=== PATIENT | female | born 1935 | race Caucasian/White ===

== ENCOUNTER 2016-04-13 10:35 | Inpatient (IN) | payer MEDICARE, BC ==
[~2016-04-13] VITALS: Ht 157.5 cm; Wt 51.6 kg
--- NOTE | 2016-04-16 09:33 | CO ---
ADMIT: 04/13/2016 RM/LOC: 408 [facility] MR#: [id number] [address] [address] ONEYDA HINES [address] [id number] Consultation SEX: F AGE: 80 : 1935 DATE OF CONSULTATION: 04/15/2016 ATTENDING PHYSICIAN: Reed Aceves CONSULTING PHYSICIAN: Yonathan Malloy MD ADDENDUM: For details of the full dictation, please see Prakash Heredia's note. I have seen Oneyda in consultation, reviewed Prakash's note and I am in agreement with his note in its entirety. I have recommended and ordered a CT scan of the abdomen and pelvis to re-evaluate for obstructive findings. She does have reducible ventral hernia on exam today and we will reassess that whether that is a potential source of an obstruction area as well. We will have additional discussion with Oneyda after the CAT scan regarding management. Yonathan Malloy MD/ sanya JOB #: [id number] CC: Reed Aceves, Attending Physician Reed Aceves, Family Physician
--- NOTE | 2016-04-21 17:46 | ER ---
ADMIT: 04/13/2016 RM/LOC: 408 [facility] MR#: [id number] [id number] [place], [place] [address] SHARMIN HINES [address] [address] Emergency Room Report SEX: F AGE: 80 : 1935 DATE: 04/13/2016 ADDENDUM: This patient comes to the ER because she is short of breath. She has a history of having emphysema and states that she did have some fevers and chills last week, numbness and weak today. The shortness of breath has gotten increasingly worse. She does wear oxygen at night. On physical exam, her O2 saturation was 85% on room air. She did have decreased air movement with auscultation of her lungs. She was given initially in the ambulance Solu- Medrol and she received the DuoNeb here and in the ambulance as well. Her lactic acid was 3.6. White count was normal. I did consult with Dr. Samaniego concerning treatment of this patient. Dr. Manzo came in to see the patient and will admit her for: 1. Pneumonia. 2. Sepsis. Please see my T-sheet and his dictation for further treatment. MARY Mendiola / Prakash Samaniego MD / modl JOB #: [id number] CC: Reed Aceves MD, Attending Physician Reed Aceves MD, Family Physician
--- NOTE | 2016-04-22 08:55 | CO ---
ADMIT: 04/13/2016 RM/LOC: 408 [facility] MR#: [id number] [address] [facility] [address] [place], [place] [address] ONEYDA HINES [address] [address] Consultation SEX: F AGE: 80 : 1935 DATE OF CONSULTATION: 04/15/2016 ATTENDING PHYSICIAN: Reed Aceves CONSULTING PHYSICIAN: Yonathan Malloy MD REASON FOR CONSULTATION: Partial small bowel obstruction. HISTORY OF PRESENT ILLNESS: Oneyda is a very pleasant 80-year-old female, who has been admitted to the hospital for management of left lower lobe pneumonia. While in the hospital stay, she developed crampy abdominal pain yesterday, where she also became nauseous and had multiple times emesis. She admits to having several episodes of these throughout her life for the 1st one being approximately 5 years ago. Her most recent episode is now and she believes she had 1 approximately 3 weeks ago. She was actually going to see Dr. Castaneda for some of her bowel issues but that appointment has now cancelled since she has been admitted to the hospital. She was told at some point that they found a "kink" in her bowels that she wanted further workup on; however, in reviewing her radiology reports, I could not find such evidence. Currently, the patient states her abdominal pain is diffuse throughout her abdomen and crampy in nature. Her last bowel movement was on Wednesday and she passed flatus yesterday. She denies any hematemesis, dark or bloody stools. PAST MEDICAL HISTORY: Significant for bronchitis. PAST SURGICAL HISTORY: Hernia repair with mesh placement. There was subsequent mesh removal due to infection approximately a couple of years ago according to documentation. ALLERGIES: TO PENICILLIN, SULFA, CIPRO, AND CONTRAST DYE. MEDICATIONS: Well documented in chart. FAMILY HISTORY: Noncontributory. SOCIAL HISTORY: The patient is a former alcohol and tobacco user. Denies illicit drug use. REVIEW OF SYSTEMS: Head: The patient states occasional headaches when her blood pressure is high. She denies any dizziness or lightheadedness or near- syncopal episodes. The rest of comprehensive 10-point review of systems was performed and all other systems are negative. PHYSICAL EXAMINATION: GENERAL: The patient is in no acute distress. She is alert and oriented. HEENT: Head is normocephalic and atraumatic. EOMS are intact. Conjunctivae free of icterus, erythema, or pallor. Pinnae, free of deformities. Nose, midline. No tracheal deviation. NECK: Supple. ADMIT: 04/13/2016 RM/LOC: 408 [facility] MR#: [id number] [address] [address] ONEYDA HINES [address] [place] [address] Consultation SEX: F AGE: 80 : 1935 SKIN: Negative for jaundice, clubbing, edema, pallor, or cyanosis. LUNGS: Normal respiratory effort. HEART: Distal pulses intact. Regular rate and rhythm. ABDOMEN: Soft, nondistended, and nontender. NEURO: Grossly intact. DIAGNOSTIC IMAGING: Abdominal flat plate today revealed nonobstructive bowel gas pattern. There was also stool throughout the large bowel. ASSESSMENT: Partial small-bowel obstruction. PLAN: As of right now, the patient is comfortable and she has received clears. I will go ahead and continue these advanced to fulls later on and place NG should her abdominal pain recur or if emesis were to recur as well. In the event that she were to deteriorate, I would also get a CAT scan of her abdomen, but at this time, I think we can treat her conservatively and follow up with an appointment with Dr. Castaneda later down the road. She is in agreement of this plan. I had all her questions answered and would like to proceed. Thank you for the consultation of this patient. MARY Mir / Yonathan Malloy MD / sanya JOB #: [id number] CC: Reed Aceves, Attending Physician Reed Aceves, Family Physician
[2016-04-25] MEDS ORDERED: DELTASONE DPS5 MG PO (14:27)
[2016-04-25] MEDS ORDERED: OYSTER SHELL C500 MG PO (14:27)
[2016-04-25] MEDS ORDERED: MIRALAX PACKET17 GM PO (14:27)
[2016-04-25] MEDS ORDERED: NORVASC5 MG PO (14:27)
[2016-04-25] MEDS ORDERED: ALDACTONE DPS25 MG PO (14:27)
[2016-04-25] MEDS ORDERED: VITAMIN D1000 UNI1 PO (14:28)
[2016-04-25] MEDS ORDERED: ZOLOFT DPS25 MG PO (14:28)
[2016-04-25] MEDS ORDERED: MONTELUKAST SOD10 MG PO (14:28)
[2016-04-25] MEDS ORDERED: REGLAN DPS5 MG PO (14:28)
[2016-04-25] MEDS ORDERED: PEPCID DPS20 MG PO (14:28)
[2016-04-25] MEDS ORDERED: ATIVAN-DPS0.5 MG PO (14:29)
[2016-04-25] MEDS ORDERED: DUONEB DPS3 ML IH (14:29)
[2016-04-25] MEDS ORDERED: DULCOLAX-DPS10 MG PR (14:29)
[2016-04-25] MEDS ORDERED: CATAPRES-DPS0.1 MG PO (14:30)
[2016-04-25] MEDS ORDERED: SURFAK DPS240 MG PO (14:30)
[2016-04-25] MEDS ORDERED: MAALOX DPS30 ML PO (14:30)
[2016-04-25] MEDS ORDERED: TYLENOL DPS325 MG PO (14:31)
[2016-05-19] MEDS ORDERED: ALDACTONE DPS25 MG PO (18:24)
[2016-05-19] MEDS ORDERED: MIRALAX PACKET17 GM PO (18:25)
[2016-05-19] MEDS ORDERED: OYSTER SHELL C500 MG PO (18:25)
[2016-05-19] MEDS ORDERED: CARDIZEM CD DP120 MG PO (18:25)
[2016-05-19] MEDS ORDERED: DELTASONE DPS10 MG PO (18:25)
[2016-05-19] MEDS ORDERED: DIFLUCAN100 MG PO (18:25)
[2016-05-19] MEDS ORDERED: PEPCID DPS20 MG PO (18:26)
[2016-05-19] MEDS ORDERED: MONTELUKAST SOD10 MG PO (18:26)
[2016-05-19] MEDS ORDERED: VITAMIN D31000 UNIT PO (18:26)
[2016-05-19] MEDS ORDERED: ZOLOFT DPS50 MG PO (18:26)
[2016-05-19] MEDS ORDERED: DULCOLAX-DPS10 MG PR (18:27)
[2016-05-19] MEDS ORDERED: DUONEB DPS3 ML IH (18:27)
[2016-05-19] MEDS ORDERED: NOVOLIN R,100 UNITS/ SQ (18:28)
[2016-05-19] MEDS ORDERED: MAALOX DPS30 ML PO (18:29)
[2016-05-19] MEDS ORDERED: SURFAK DPS240 MG PO (18:29)
[2016-05-19] MEDS ORDERED: CATAPRES-DPS0.1 MG PO (18:29)
[2016-05-19] MEDS ORDERED: GLUTOSE 1537.5 GM PO (18:29)
[2016-05-19] MEDS ORDERED: ATIVAN-DPS0.5 MG PO (18:29)
[2016-05-19] MEDS ORDERED: TYLENOL DPS325 MG PO (18:30)
[2016-05-19] MEDS ORDERED: PROVENTIL HFA6.7 GM IH (18:30)
--- NOTE | 2016-07-07 13:08 | DS ---
ADMIT: 04/13/2016 RM/LOC: 408 [facility] MR#: [id number] [address] [facility] [address] [place], [place] [address] ONEYDA HINES [address] [facility] [address] [place] [id number] Discharge Summary SEX: F AGE: 80 : 1935 CORRECTED: 06/02/2016 1232 BJ ADMISSION DATE: 04/13/2016 DISCHARGE DATE: 04/22/2016 DISMISSAL DIAGNOSES: 1. Nausea and vomiting, resolved. 2. Obstipation. CLINICAL HISTORY: Oneyda Hines came in with pneumonia, was in the midst of evaluation for partial small bowel obstruction, and began to have nausea and vomiting. This required NG tube short-term. Ultimately, her seeming partial small bowel obstruction resolved. Her bowels began to move. Her pneumonia improved. Her COPD improved as well. She was able to resume diet. TPN was used to provide nutrition and ultimately she was dismissed somewhat unplanned as her was in the last vestiges of dying from a known terminal illness, and she requested to be at his bedside. Blood cultures were repeatedly negative. Blood sugar testing showed sugars in the 200s, returning to the 100, and chemistries appropriately reflected her nutritional needs and her TPN. Pansinusitis was demonstrated on sinus films, and various chest x-ray interpretations documented improvement. A CT of the abdomen did not show a definite small bowel obstruction, but mesenteric edema. She was again dismissed somewhat precipitously for close followup. Reed Aceves MD/ sanya JOB #: [id number] CC: Reed Aceves MD, Attending Physician Reed Aceves MD, Family Physician CORRECTED: 06/02/2016 1232 BJ
== END 2016-04-22 15:50 | disposition home or self-care (01) | DRG 190 ==
LOC: ER 10:35 → 4PCU 12:20
PROVIDERS: ADMIT Internal Medicine
DX: J44.0 Chronic obstructive pulmonary disease with (acute) lower respiratory infection (principal); J12.9 Viral pneumonia, unspecified; K56.60 Unspecified intestinal obstruction; E46 Unspecified protein-calorie malnutrition; J44.1 Chronic obstructive pulmonary disease with (acute) exacerbation; I10 Essential (primary) hypertension; K59.00 Constipation, unspecified; K57.90 Diverticulosis of intestine, part unspecified, without perforation or abscess without bleeding; F41.9 Anxiety disorder, unspecified; K43.9 Ventral hernia without obstruction or gangrene; Z87.891 Personal history of nicotine dependence

== ENCOUNTER 2016-04-22 19:18 | Inpatient (IN) | payer MEDICARE, BC ==
[~2016-04-22] VITALS: Ht 157.5 cm; Wt 51.4 kg
--- NOTE | ~2016-04-22 | FD ---
ADMIT: 04/22/2016 RM/LOC: 408 [facility] MR#: [id number] 2620 [facility] [address] [place] [address] SHARMIN HINES [facility] [address] Final Diagnosis SEX: F AGE: 80 : 1935 ADMISSION DATE: 04/22/2016 DISCHARGE DATE: 04/24/2016 FINAL DIAGNOSIS: Pneumonia. Reed Aceves MD/ ajf JOB #: [id number] CC: Reed Aceves MD, Attending Physician Reed Aceves MD, Family Physician
[2016-04-25] MEDS ORDERED: DELTASONE DPS5 MG PO (14:27)
[2016-04-25] MEDS ORDERED: OYSTER SHELL C500 MG PO (14:27)
[2016-04-25] MEDS ORDERED: ALDACTONE DPS25 MG PO (14:27)
[2016-04-25] MEDS ORDERED: MIRALAX PACKET17 GM PO (14:27)
[2016-04-25] MEDS ORDERED: NORVASC5 MG PO (14:27)
[2016-04-25] MEDS ORDERED: MONTELUKAST SOD10 MG PO (14:28)
[2016-04-25] MEDS ORDERED: ZOLOFT DPS25 MG PO (14:28)
[2016-04-25] MEDS ORDERED: VITAMIN D1000 UNI1 PO (14:28)
[2016-04-25] MEDS ORDERED: PEPCID DPS20 MG PO (14:28)
[2016-04-25] MEDS ORDERED: REGLAN DPS5 MG PO (14:28)
[2016-04-25] MEDS ORDERED: ATIVAN-DPS0.5 MG PO (14:29)
[2016-04-25] MEDS ORDERED: DUONEB DPS3 ML IH (14:29)
[2016-04-25] MEDS ORDERED: DULCOLAX-DPS10 MG PR (14:29)
[2016-04-25] MEDS ORDERED: SURFAK DPS240 MG PO (14:30)
[2016-04-25] MEDS ORDERED: MAALOX DPS30 ML PO (14:30)
[2016-04-25] MEDS ORDERED: CATAPRES-DPS0.1 MG PO (14:30)
[2016-04-25] MEDS ORDERED: TYLENOL DPS325 MG PO (14:31)
[2016-05-19] MEDS ORDERED: ALDACTONE DPS25 MG PO (18:24)
[2016-05-19] MEDS ORDERED: DELTASONE DPS10 MG PO (18:25)
[2016-05-19] MEDS ORDERED: DIFLUCAN100 MG PO (18:25)
[2016-05-19] MEDS ORDERED: MIRALAX PACKET17 GM PO (18:25)
[2016-05-19] MEDS ORDERED: CARDIZEM CD DP120 MG PO (18:25)
[2016-05-19] MEDS ORDERED: OYSTER SHELL C500 MG PO (18:25)
[2016-05-19] MEDS ORDERED: MONTELUKAST SOD10 MG PO (18:26)
[2016-05-19] MEDS ORDERED: ZOLOFT DPS50 MG PO (18:26)
[2016-05-19] MEDS ORDERED: PEPCID DPS20 MG PO (18:26)
[2016-05-19] MEDS ORDERED: VITAMIN D31000 UNIT PO (18:26)
[2016-05-19] MEDS ORDERED: DUONEB DPS3 ML IH (18:27)
[2016-05-19] MEDS ORDERED: DULCOLAX-DPS10 MG PR (18:27)
[2016-05-19] MEDS ORDERED: NOVOLIN R,100 UNITS/ SQ (18:28)
[2016-05-19] MEDS ORDERED: ATIVAN-DPS0.5 MG PO (18:29)
[2016-05-19] MEDS ORDERED: GLUTOSE 1537.5 GM PO (18:29)
[2016-05-19] MEDS ORDERED: CATAPRES-DPS0.1 MG PO (18:29)
[2016-05-19] MEDS ORDERED: MAALOX DPS30 ML PO (18:29)
[2016-05-19] MEDS ORDERED: SURFAK DPS240 MG PO (18:29)
[2016-05-19] MEDS ORDERED: TYLENOL DPS325 MG PO (18:30)
[2016-05-19] MEDS ORDERED: PROVENTIL HFA6.7 GM IH (18:30)
--- NOTE | 2016-05-25 11:46 | HP ---
ADMIT: 04/22/2016 RM/LOC: 408 [facility] MR#: [id number] [address] [place], [place] [address] ONEYDA HINES A [address] [place] [address] History and Physical SEX: F AGE: 80 : 1935 DATE OF SERVICE: CHIEF COMPLAINT: Pneumonia. CLINICAL HISTORY: Oneyda had an upper respiratory infection at home over the last one week but in spite of increasing respiratory treatments, antibiotics, Boost,and steroid therapy; she continued to cough, develop fever and weakness and shortness of breath; she came into the emergency room and had a left pneumonia, probably viral. She had been prepped for the possibility of surgery having an internal hernia/adhesion with intermittent abdominal pain, nausea and vomiting. She had seen Dr. Castaneda surgically and had been prepared for surgery and cancelled due to her respiratory illness. PAST MEDICAL HISTORY: Prior history of asthma, hypertension, prior fractured hip, left inguinal hernia repair and secondary mesh infection with removal and recent abdominal pain. ALLERGIES: MOST OF THESE ARE INTOLERANCES BUT ARE MULTIPLE. REVIEW OF SYSTEMS: She has not had any vomiting or any signs or symptoms of aspiration. She denies any chest pain. She has had bladder infections in the past but has no symptoms currently. PHYSICAL EXAMINATION: GENERAL: Examination showed white female in no acute distress but is obviously weak and tired. HEAD AND NECK: Otherwise without findings. LUNG: Showed focal rales at left base, significant and increased. HEART: Regular with pulse rate at 90. ABDOMEN: Benign with no mass or tenderness. No evidence of obstruction. EXTREMITIES: Otherwise unremarkable except for trace of puffiness of the right foot, post hip fracture. This is chronic and unchanged. NEUROLOGIC: She is awake and alert. Moves all 4 extremities but has no focal abnormalities. ADMIT: 04/22/2016 RM/LOC: 408 [facility] MR#: [id number] 2620 [facility] [address] [place], [place] [address] ONEYDA HINES [address] [place] [address] History and Physical SEX: F AGE: 80 : 1935 IMPRESSION: 1. Left lower lobe pneumonia, probably viral. 2. Recent partial small bowel obstruction with adhesion/internal hernia. 3. History of asthma/emphysema. 4. Recent fractured hip. 5. Multiple medication intolerances. TREATMENT: We will start her on antibiotics and pulmonary hygiene, watch her abdominal findings closely, and probably have Dr. Castaneda notified who has seen her in the past. Reed Aceves MD/ sanya JOB #: [id number] CC: Reed Aceves, Attending Physician Reed Aceves, Family Physician Demetrius Castaneda MD
== END 2016-04-24 14:49 | DRG 190 ==
LOC: 4PCU 19:18
PROVIDERS: ADMIT Internal Medicine
DX: J44.0 Chronic obstructive pulmonary disease with (acute) lower respiratory infection (principal); J12.9 Viral pneumonia, unspecified; J45.909 Unspecified asthma, uncomplicated; K46.9 Unspecified abdominal hernia without obstruction or gangrene; I10 Essential (primary) hypertension

== ENCOUNTER 2016-05-07 06:41 | Emergency (ER) | payer MEDICARE, BC ==
[~2016-05-07 06:41] MED LIST: ALDACTONE DPS25 MG PO; ATIVAN-DPS0.5 MG PO; CATAPRES-DPS0.1 MG PO; DELTASONE DPS5 MG PO; DULCOLAX-DPS10 MG PR; DUONEB DPS3 ML IH; MAALOX DPS30 ML PO; MIRALAX PACKET17 GM PO; MONTELUKAST SOD10 MG PO; NORVASC5 MG PO; OYSTER SHELL C500 MG PO; PEPCID DPS20 MG PO; REGLAN DPS5 MG PO; SURFAK DPS240 MG PO; TYLENOL DPS325 MG PO; VITAMIN D1000 UNI1 PO; ZOLOFT DPS25 MG PO
[2016-05-19] MEDS ORDERED: ALDACTONE DPS25 MG PO (18:24)
[2016-05-19] MEDS ORDERED: DELTASONE DPS10 MG PO (18:25)
[2016-05-19] MEDS ORDERED: CARDIZEM CD DP120 MG PO (18:25)
[2016-05-19] MEDS ORDERED: OYSTER SHELL C500 MG PO (18:25)
[2016-05-19] MEDS ORDERED: DIFLUCAN100 MG PO (18:25)
[2016-05-19] MEDS ORDERED: MIRALAX PACKET17 GM PO (18:25)
[2016-05-19] MEDS ORDERED: ZOLOFT DPS50 MG PO (18:26)
[2016-05-19] MEDS ORDERED: PEPCID DPS20 MG PO (18:26)
[2016-05-19] MEDS ORDERED: MONTELUKAST SOD10 MG PO (18:26)
[2016-05-19] MEDS ORDERED: VITAMIN D31000 UNIT PO (18:26)
[2016-05-19] MEDS ORDERED: DUONEB DPS3 ML IH (18:27)
[2016-05-19] MEDS ORDERED: DULCOLAX-DPS10 MG PR (18:27)
[2016-05-19] MEDS ORDERED: NOVOLIN R,100 UNITS/ SQ (18:28)
[2016-05-19] MEDS ORDERED: ATIVAN-DPS0.5 MG PO (18:29)
[2016-05-19] MEDS ORDERED: CATAPRES-DPS0.1 MG PO (18:29)
[2016-05-19] MEDS ORDERED: MAALOX DPS30 ML PO (18:29)
[2016-05-19] MEDS ORDERED: GLUTOSE 1537.5 GM PO (18:29)
[2016-05-19] MEDS ORDERED: SURFAK DPS240 MG PO (18:29)
[2016-05-19] MEDS ORDERED: TYLENOL DPS325 MG PO (18:30)
[2016-05-19] MEDS ORDERED: PROVENTIL HFA6.7 GM IH (18:30)
--- NOTE | 2016-06-06 21:14 | ER ---
ADMIT: 05/07/2016 RM/LOC: ER [facility] MR#: [id number] [address] [facility] [place], [place] [address] SHARMIN HINES [address] [address] Emergency Room Report SEX: F AGE: 80 : 1935 DATE: 05/07/2016 An 80-year-old, who resides at the [facility] [place], became short of breath in the night. She is normally on 2 L of oxygen. She started coughing and felt short of breath. I increased her oxygen to 3, transferred her to the Emergency Department here. See T-sheet for history and physical. Chest x-ray is clear. White count is normal, hemoglobin 11.9. Chemistries are 3.5 for potassium, glucose 156. An ABG on 2 L, which is her chronic O2 setting has a pH of 7.45, pCO2 of 35, PO2 of 80, and O2 saturations is 95%. The patient is being discharged and instructed to keep her appointment with Dr. Aceves. DIAGNOSIS: Being shortness of breath. Qamar Stoddard MD/ sanya JOB #: [id number] CC: Chicho Jeter MD, Attending Physician Reed Aceves MD, Family Physician
== END 2016-05-07 09:25 | disposition home or self-care (01) ==
LOC: ER 06:41
DX: R06.02 Shortness of breath (principal); I10 Essential (primary) hypertension; J45.909 Unspecified asthma, uncomplicated; Z88.0 Allergy status to penicillin; Z88.2 Allergy status to sulfonamides; Z88.1 Allergy status to other antibiotic agents; Z91.041 Radiographic dye allergy status; Z87.891 Personal history of nicotine dependence

== ENCOUNTER 2016-05-11 16:03 | Inpatient (IN) | payer MEDICARE, BC ==
[~2016-05-11] VITALS: Ht 157.5 cm; Wt 52.4 kg
--- NOTE | ~2016-05-11 | ECH ---
Transthoracic Echocardiography Report (TTE) Demographics Patient Name SHARMIN HINES Date of Study 05/12/2016 Patient Number [id number] Visit Number [id number] Date of 1935 Room Number 508 Accession Number [id number] Gender Female Age 80 year(s) Referring Ketan Emanuel MD Road Boss Lupe Arellano [facility] Physician Physician Pete Martinez MD Residency Program Coordinator Physician Giovany Supervising Ordering Physician Ketan Emanuel MD, MD/P Nurse Stress Produce Laborer Conclusions Contractility Score Summary Normal Left Ventricular contractility was noted. Summary Technically fair exam. The estimated left ventricular ejection fraction is >75% with hyperdynamic function. Diastolic assessment reveals Grade I diastolic dysfunction. There is mild aortic regurgitation by color Doppler. There is mild to moderate tricuspid regurgitation. There is mild pulmonary hypertension. The pulmonary pressure (RVSP) is 36 mmHg. Rhythm appears to be sinus tachycardia. Recommendation The patient will be given the results of this study by the physician who ordered the exam. Procedure Type of Study TTE procedure:Echo Complete SF. Procedure Date Date: 05/12/2016 Start: 02:40 PM Technical Quality: Fair Indications:Shortness of breath, edema and paroxysmal a-fib. Appropriate Use Criteria: 9 Height: 62 inches Weight: 109 pounds BSA: 1.48 m Rhythm: Sinus tachycardia HR: 104 bpm BP: 141/65 mmHg M-Mode/2D Measurements LV Diastolic Dimension: 2.69 cm LV Systolic Dimension: 2.01 cm LV Septum Diastolic: 0.8 cm LV PW Diastolic: 0.9 cm AO Root Dimension: 2.58 cm Cardiac Output: 4.42 l/min LA Dimension: 2.73 cm Cardiac Index: 2.99 l/min*m LA volume index: 13 ml/m LVOT: 1.52 cm RV Base: 3.2 cm LVOT VTI: 23.41 cm RV Mid: 1.9 cm LV Stroke volume: 42.46 ml LV Stroke volume index: 28.69 ml/m Doppler Measurements AV Peak Velocity: 1.5 m/s MV Peak E-Wave: 0.68 m/s AV Peak Gradient: 9 mmHg MV Peak A-Wave: 1.1 m/s AV Mean Gradient: 4.82 mmHg MV E/A Ratio: 0.62 LVOT Peak Velocity: 1.57 m/s AV Area (Continuity):1.44 cm AV P1/2t: 341.2 msec TR Velocity:2.79 m/s PV Peak Velocity: 1.17 m/s TR Gradient:31.06 mmHg PV Peak Gradient: 5.43 mmHg Estimated RAP:5 mmHg Estimated PASP: 36.06 mmHg Estimated RVSP: 36 mmHg RA Area: 9.33 cm Findings Left Ventricle The left ventricle is normal in size . Diastolic assessment reveals Grade I diastolic dysfunction. Right Ventricle Normal right ventricle structure and function. Left Atrium Normal left atrial size. Right Atrium Normal right atrial size. Mitral Valve Mild thickening of the mitral valve leaflets. Mild mitral annular calcification. Trivial mitral regurgitation by color Doppler. Aortic Valve The aortic valve was not well imaged. The aortic valve is mildly sclerotic. There is mild aortic regurgitation by color Doppler. Tricuspid Valve Normal tricuspid valve structure and function. Mild to moderate tricuspid regurgitation by color Doppler. There is mild pulmonary hypertension. The pulmonary pressure (RVSP) is 36 mmHg. Pulmonic Valve Normal pulmonic valve structure and function. Pericardial Effusion No evidence of pericardial effusion. Miscellaneous Visualized portions of the aortic root and ascending aorta appear normal in size. Pleural Effusion No evidence of pleural effusion. Contractility Score LV regional wall motion:(0-Non visualized 1-Normal 2-Hypokinesis 3-Akinesis 4-Dyskinesis 5-Aneurysm) Signature
--- NOTE | ~2016-05-11 | HP ---
ADMIT: 05/11/2016 RM/LOC: 527 [facility] MR#: [id number] [address] [place], [place] [address] ONEYDA HINES [address] [place] [address] History and Physical SEX: F AGE: 80 : 1935 DATE OF SERVICE: CHIEF COMPLAINT: 1. Left lower lobe pneumonia, possible viral. 2. Chronic obstructive pulmonary disease with exacerbation. 3. Partial small bowel obstruction. CLINICAL HISTORY: Oneyda was admitted to the hospital. She was in the midst of an evaluation for partial small bowel obstruction, which was seen on CT scan and had seen surgical consultation. She was planning to have surgery, but then developed a viral upper respiratory infection resulting in ultimate pneumonia and exacerbation of chronic obstructive pulmonary disease and she was admitted for such. PAST MEDICAL HISTORY: Includes: 1. A prior fractured hip. 2. Hypertension. 3. Chronic edema. 4. Hyperglycemia. 5. Hypertension. 6. COPD. 7. Partial small bowel obstruction. PAST SURGICAL HISTORY: She had a left inguinal hernia repair with mesh, and mesh removal due to chronic infection. REVIEW OF SYSTEMS: Otherwise was unremarkable without choking or swallowing issues. She had not had any other specific symptoms including no hemoptysis, chest pain, etc. PHYSICAL EXAMINATION: GENERAL: Examination showed a white female. VITAL SIGNS: Blood pressure 162/90. HEAD AND NECK: The head and neck shows some sinus congestion and pressure. LUNGS: Show rales at the left lower lobe. There was expiratory wheezes, poor air entry. O2 saturations on room air were borderline. ABDOMEN: Benign without definite signs of obstruction at this time. EXTREMITIES: The extremities showed trace of edema right, 1 to 2+ left (prior fracture). ADMITTING IMPRESSION: ADMIT: 05/11/2016 RM/LOC: 527 [facility] MR#: [id number] [address] [address] ONEYDA HINES [place] [address] [place] [address] History and Physical SEX: F AGE: 80 : 1935 1. Pneumonia, left lower lobe. 2. Chronic obstructive pulmonary disease with exacerbation. 3. Recent partial small bowel obstruction. 4. Hypertension. 5. Hyperglycemia. 6. Status post hip fracture. 7. Residual edema, left. 8. History of inguinal hernia repair with secondary mesh infection, resolved. TREATMENT PLAN: We will cover with IV antibiotics, steroids, blood pressure control, etc. Reed Aceves MD/ modl JOB #: [id number] CC: Reed Aceves MD, Attending Physician Reed Aceves MD, Family Physician
--- NOTE | 2016-05-15 08:44 | CO ---
ADMIT: 05/11/2016 RM/LOC: 527 [facility] MR#: [id number] [address] [place], [place] [address] DONNY SHARMIN A [address] [place] [address] Consultation SEX: F AGE: 80 : 1935 DATE OF CONSULTATION: 05/14/2016 ATTENDING PHYSICIAN: Reed Aceves CONSULTING PHYSICIAN: Gm Llanos MD REASON: Pulmonary infiltrate. HISTORY OF PRESENT ILLNESS: The patient is a pleasant 80-year-old female, admitted with a COPD exacerbation. During the evaluation, chest x-ray and CT scan has been performed. She has upper lobe infiltrates, which are more prominent than they were on prior scan. She has a cough, no hemoptysis, some low-grade fevers, no night sweats, some chills. She has significant history of anxiety, oxygen-dependent COPD, and former smoking history. Antibiotics consisting of Rocephin and Levaquin have been initiated. Prior TB testing x2. Skin testing has been negative. QuantiFERON gold testing has been ordered. She has been moved to respiratory isolation. AFBs will be obtained. PAST MEDICAL HISTORY: Reviewed. COPD, anxiety, and pulmonary infiltrates. PAST SURGICAL HISTORY: Reviewed. History of inguinal hernia and prior fractured hip. MEDICATIONS: At home: 1. Ativan. 2. Singular. 3. Norvasc. 4. Oxygen. 5. Proventil. 6. Prednisone. 7. Ceftin. SOCIAL HISTORY: At assisted Living post hip fracture. REVIEW OF SYSTEMS: Except the HPI is negative and reviewed. PHYSICAL EXAMINATION: VITAL SIGNS: Reviewed and within normal limits. HEENT: Within normal limits. NECK: No JVD or bruits. HEART: Regular rate. LUNGS: Rhonchi. ABDOMEN: Soft. EXTREMITIES: No edema, cyanosis, or clubbing. GENITORECTAL: Deferred. LABORATORY DATA: White count 13,400, hemoglobin 11.4, and platelets were 343. BMP shows elevated BUN at 35 and calcium 10.3. Chest x-ray was fairly nonrevealing, but chest CT done on 05/12, shows upper lobe infiltrate mostly ground-glass opacities that do come down into the middle portions of both ADMIT: 05/11/2016 RM/LOC: 527 [facility] MR#: [id number] [address] [place], [place] [address] DONNY SHARMIN A [address] [place] [address] Consultation SEX: F AGE: 80 : 1935 lungs, but then disappear. There is some minor bronchiectasis that is noted as well. No pathologic lymph nodes. IMPRESSION: Upper lobe pulmonary infiltrate/ground-glass opacities, which is most likely infectious unlikely tuberculosis, but testing has been ordered. We will order AFB smear and culture, urine histoplasmosis antigen, Legionella urinary antigen, and procalcitonin levels. I agree with current neb treatments, steroids, and oxygen, antibiotics consisting of Levaquin and Rocephin. May have to consider bronchoscopy if this is nonrevealing or she does not improve. Thank you for having me see her. Gm Llanos MD/ sanya JOB #: [id number] CC: Reed Aceves, Attending Physician Reed Aceves, Family Physician
[2016-05-19] MEDS ORDERED: ALDACTONE DPS25 MG PO (18:24)
[2016-05-19] MEDS ORDERED: MIRALAX PACKET17 GM PO (18:25)
[2016-05-19] MEDS ORDERED: CARDIZEM CD DP120 MG PO (18:25)
[2016-05-19] MEDS ORDERED: OYSTER SHELL C500 MG PO (18:25)
[2016-05-19] MEDS ORDERED: DELTASONE DPS10 MG PO (18:25)
[2016-05-19] MEDS ORDERED: DIFLUCAN100 MG PO (18:25)
[2016-05-19] MEDS ORDERED: MONTELUKAST SOD10 MG PO (18:26)
[2016-05-19] MEDS ORDERED: ZOLOFT DPS50 MG PO (18:26)
[2016-05-19] MEDS ORDERED: PEPCID DPS20 MG PO (18:26)
[2016-05-19] MEDS ORDERED: VITAMIN D31000 UNIT PO (18:26)
[2016-05-19] MEDS ORDERED: DUONEB DPS3 ML IH (18:27)
[2016-05-19] MEDS ORDERED: DULCOLAX-DPS10 MG PR (18:27)
[2016-05-19] MEDS ORDERED: NOVOLIN R,100 UNITS/ SQ (18:28)
[2016-05-19] MEDS ORDERED: MAALOX DPS30 ML PO (18:29)
[2016-05-19] MEDS ORDERED: GLUTOSE 1537.5 GM PO (18:29)
[2016-05-19] MEDS ORDERED: SURFAK DPS240 MG PO (18:29)
[2016-05-19] MEDS ORDERED: CATAPRES-DPS0.1 MG PO (18:29)
[2016-05-19] MEDS ORDERED: ATIVAN-DPS0.5 MG PO (18:29)
[2016-05-19] MEDS ORDERED: PROVENTIL HFA6.7 GM IH (18:30)
[2016-05-19] MEDS ORDERED: TYLENOL DPS325 MG PO (18:30)
--- NOTE | 2016-06-15 10:42 | HP ---
ADMIT: 05/11/2016 RM/LOC: 508 [facility] MR#: [id number] [facility]#: [id number] [address] [address] ONEYDA HINES [address] [place] [id number] History and Physical SEX: F AGE: 80 : 1935 DATE OF SERVICE: CHIEF COMPLAINT: 1. Possible pneumonia. 2. Anxiety. 3. Chronic obstructive pulmonary disease with exacerbation. CLINICAL HISTORY: Oneyda Hines was admitted to the hospital with the onset of increasing cough, shortness of breath, low-grade fevers, and increasing anxiety. She was becoming quickly dependent upon Ativan having panic attacks. She states that some of this is triggered by increasing dyspnea and sometimes however it is not necessarily related to dyspnea. Her family believes that anxiety is a major role here. She has had underlying lung disease. She has been on nighttime oxygen for sometime. Much of this coincided with a prior fractured hip and perioperative needs, but some of it obviously with progressive underlying emphysema. She is a patient with emphysema and asthma. Her mother had the same, but she is Alpha-1 antitrypsin normal phenotype and normal levels. Previously, she has had episodes of pneumonia and COPD with exacerbation complicated by recurrent sinus infections. She denies any significant productive cough. She has not had any hemoptysis, and a prior TB skin test x2 over the last 2 years has been negative at times when she has gone into institutional cares. REVIEW OF SYSTEMS: She has had some intermittent edema since her fractured hip. No evidence of prior pulmonary emboli. No history of chest pain or palpitations. Her maximum temperature has been 100 a couple of days ago, and today's temperature is 99.2. PAST MEDICAL HISTORY: OPERATIONS: 1. Prior left inguinal hernia with secondary mesh infection and mesh removal. 2. Prior fractured hip. ALLERGIES: SHE HAS A NUMBER OF INTOLERANCES WHICH IS VERY DIFFICULT TO SEPARATE OUT FROM ACTUAL ALLERGIES. WE BELIEVE SHE IS HOWEVER ALLERGIC TO PENICILLIN. INTOLERANCES INCLUDE LEVAQUIN OR CIPRO, WHICH CAUSE ANXIETY, AND SOME OTHER MEDICATIONS THAT CAUSE GI UPSET. MEDICATIONS: 1. Ativan. 2. Singulair. 3. Norvasc. 4. Oxygen. ADMIT: 05/11/2016 RM/LOC: 508 [facility] MR#: [id number] [id number] [place], [place] [address] ONEYDA HINES [address] [place] [address] History and Physical SEX: F AGE: 80 : 1935 5. Proventil. 6. Prednisone. 7. Ceftin 500 p.o. b.i.d. SOCIAL HISTORY: Her recently . She has been at assisted living after being at skilled care post hip fracture. She does not smoke or drink, and has not smoked for many years. REVIEW OF SYSTEMS: She denies any other specific signs of reflux, aspiration, or GERD. She had an episode of abdominal pain and a CT scan suggested a partial small bowel obstruction secondary to internal hernia and she had actually been prepped for surgery approximately six weeks ago. Her abdominal pain has improved considerably in that interval. She has a known left inguinal hernia repair, this has not caused her any problems, and most of her pain is on the right side. She has had no change in bowel habits, and no recent dysuria. She has had a 1+ edema right, and 2+ left, chronically for the last one year. There have been no signs of heart failure. Besides her anxiety, there is probably some mild depression, but she has not had significant headaches, change in neurological status, or signs of stroke etc. PHYSICAL EXAMINATION: GENERAL: Examination showed a mucopurulent harsh cough. Low-grade fever. She is mildly dyspneic with oxygen in place. She is quite anxious. HEAD AND NECK: Otherwise, unremarkable. LUNGS: Show coarse rhonchi. I could not hear focal abnormalities. There is 1+ wheezing on expiration. HEART: Regular with a pulse rate of 100. There was only an occasional extrasystole. I could not appreciate any significant murmur or evident heart failure. ABDOMEN: Benign with the above notations. EXTREMITIES: Showed the edema. NEUROLOGICAL: I can find no focal abnormalities. I cannot find any evidence of significant goiter or hyperthyroidism. IMPRESSION: 1. Possible early pneumonia. 2. Recent negative chest x-ray. 3. Chronic obstructive pulmonary disease with exacerbation. 4. Anxiety with panic attacks. ADMIT: 05/11/2016 RM/LOC: 508 [facility] MR#: [id number] [facility] [address] [address] ONEYDA HINES [facility] [place] [address] History and Physical SEX: F AGE: 80 : 1935 5. Mild depression. 6. History of hypertension. 7. Status post fractured hip. 8. Status post inguinal hernia repair, mesh infection and removal. 9. Internal hernia without current signs of obstruction. 10.Multiple medication intolerances. TREATMENT: We will undertake a CT scan, look closer for hidden pneumonia, treat her for exacerbation of COPD, have her come into the hospital as outpatient efforts have failed to improve her condition. We will make the Ativan available to her, but hopefully with pulmonary hygiene and antibiotics along with boosting her steroids, we can affect some improvement. Reed Aceves MD/ sanya JOB #: [id number] CC: Reed Aceves, Attending Physician Reed Aceves, Family Physician
== END 2016-05-18 14:30 | DRG 190 ==
LOC: 5MS 16:03
PROVIDERS: ADMIT Internal Medicine
DX: J44.0 Chronic obstructive pulmonary disease with (acute) lower respiratory infection (principal); J18.9 Pneumonia, unspecified organism; D64.9 Anemia, unspecified; Z99.81 Dependence on supplemental oxygen; J44.1 Chronic obstructive pulmonary disease with (acute) exacerbation; R09.02 Hypoxemia; I10 Essential (primary) hypertension; F32.9 Major depressive disorder, single episode, unspecified; F41.0 Panic disorder [episodic paroxysmal anxiety]; Z87.891 Personal history of nicotine dependence